=== PATIENT | male | born 1990 | race Two or more races ===

== ENCOUNTER 2017-03-18 08:32 | Emergency (ER) | payer SELFPAY ==
--- NOTE | ~2017-03-18 | ER ---
PATIENT'S NAME: JOSE L RAUSCH [facility] AGE: 26 Y [address] ROOM: [place] [address] LOCATION: ED ADMIT DATE: 03/18/2017 ER/Outpatient Report DISCHARGE DATE: 03/18/2017 FAMILY PHYSICIAN: PHYSICIAN, NO ATTENDING PHYSICIAN: Nico Kent CHIEF COMPLAINT: Nausea and vomiting. HISTORY OF PRESENT ILLNESS: The patient states that usually in the morning, he has some nausea and occasionally vomits, particularly when he is hungry and is unable to eat. Today, it has gotten worse and he states that he has not been able to even try to eat anything other than a pop tart today, which he was not able to keep down. He has not tried anything to make this better. The issue started around 6 o'clock when he woke up. He denies any other issues and denies any prior abdominal pain. His bowel movements have been regular for him up to this point. He had a normal bowel movement earlier this morning. PAST MEDICAL HISTORY: Documented on the record and reviewed by me. SOCIAL HISTORY: Documented on the record and reviewed by me. MEDICATIONS: Documented on the record and reviewed by me. ALLERGIES: DOCUMENTED ON THE RECORD AND REVIEWED BY ME. ROS: All systems are reviewed and negative except as noted in the HPI. PHYSICAL EXAMINATION: VITAL SIGNS: Blood pressure is 143/86, pulse is 72, respiratory rate is 28, temperature is 97.2, SpO2 is 97% on room air. Pain is rated at 3 to 5/10. GENERAL: An age-appropriate male retching, sitting upright on the side of the exam table, in no obvious pain or distress, age appropriate. NEURO: The patient is awake, he is interactive. He moves all extremities appropriately. No obvious asymmetry or abnormalities on exam. HEENT: Normocephalic and atraumatic. Eyes are PERRL. Oropharynx is clear and moist. NECK: Supple. Trachea is midline. CHEST: Heart is regular rate and rhythm with no murmurs. PATIENT'S NAME: JOSE L RAUSCH [facility] AGE: 26 Y [address] ROOM: [place] [address] LOCATION: ED ADMIT DATE: 03/18/2017 ER/Outpatient Report DISCHARGE DATE: 03/18/2017 FAMILY PHYSICIAN: PHYSICIAN, NO ATTENDING PHYSICIAN: Nico Kent LUNGS: Clear to auscultation bilaterally with no rhonchi, wheezes, or rales. ABDOMEN: Soft, nontender, except for very mild nonreproducible tenderness on first exam in the right upper quadrant. No reproducible tenderness on subsequent exams. No other masses or guarding appreciated. BACK: Nontender. No CVA tenderness. EXTREMITIES: Warm and well perfused. No obvious abnormalities. SKIN: Warm, dry, and intact. LABORATORY DATA AND X-RAYS: Three-way abdomen without any abnormalities per my read. Procalcitonin is below threshold. CMS is notable for elevated AST and ALT of 49 and 91 respectively. No renal compromise. Amylase and lipase are in appropriate range except with low lipase at 68. CBC without appreciable abnormalities. INR is 0.95. Lactate is 2.5. Right upper quadrant ultrasound notable for fatty liver, but no other hepatobiliary pathology. IMPRESSION: 1. Nausea and vomiting of undetermined etiology. 2. Elevated transaminases. EMERGENCY DEPARTMENT COURSE: The patient was seen and evaluated. He was given fluids, 2 rounds of Zofran, and a dose of Phenergan. He had marked improvement in his retching. He states he still has the abdominal discomfort, but is feeling okay. Right upper quadrant ultrasound was obtained and negative except as noted above. The patient remained otherwise hemodynamically stable and otherwise is doing okay. He was able to tolerate oral intake and was given a prescription for Phenergan and discharged home with instructions to follow up/establish care with a primary care provider as needed and return if worse. All questions were answered and the patient was discharged. MD KELLY HAILE/kate /[id number] d: 03/19/17 0000 t: 03/31/17 1722, OUTPATIENT REPORT
[2017-03-18 09:12] LABS: BASOPHIL % 0.4 %; EOSINOPHIL # 0.2 K/uL (0.0-0.5); EOSINOPHIL % 2.5 %; HEMATOCRIT 45.6 % (37.0-53.0); HEMOGLOBIN 16.1 g/dL (12.0-17.0); IMMATURE GRANULOCYTE % 0.1 %; LYMPHOCYTE % 24.4 %; MCH 32.1 pg (27.0-34.0); MCHC 35.3 gm/dL (32.0-36.5); MCV 90.8 fl (83.0-98.0); MONOCYTE # 0.8 K/uL (0.0-1.0); MONOCYTE % 9.4 %; NEUTROPHIL # (ANC) 5.3 K/uL (1.4-9.0); NEUTROPHIL % 63.2 %; NRBC % 0 /100WBC (0-0.00); PLATELET COUNT 336 K/uL (150-450); RBC 5.02 M/uL (4.00-6.00); RDW-CV 12.6 % (11.9-14.6); WBC 8.3 K/uL (4.0-11.0)
[2017-03-18 09:23] LABS: INR - (THERAPEUTIC) 0.95 (0.92-1.07); PTT 30 SECONDS (25-32)
[2017-03-18 09:34] LABS: ALBUMIN 4.2 gm/dL (3.5-5.0); ALK PHOS 100 IU/L (33-138); ALT 91 IU/L (12-78); ANION GAP 16.8 (10.0-19.0); AST 49 IU/L (10-40); BLOOD UREA NITROGEN 17 mg/dL (6-24); CALCIUM 9.5 mg/dL (8.5-10.5); CHLORIDE 108 mMol/L (96-110); CO2 20 mMol/L (22-32); ESTIMATED GFR (MDRD EQUATION) > 60; POTASSIUM 3.8 mMol/L (3.7-5.1); SODIUM 141 mMol/L (135-145); TOTAL BILIRUBIN 0.9 mg/dL (0.0-1.5); TOTAL PROTEIN 8.1 g/dL (6.0-8.4)
== END 2017-03-18 12:49 | disposition disaster alternative care site (69) ==
LOC: GMED 08:32
PROVIDERS: Emergency Medicine
DX: R74.0 Nonspecific elevation of levels of transaminase and lactic acid dehydrogenase [LDH] (principal); R11.2 Nausea with vomiting, unspecified; Z88.2 Allergy status to sulfonamides
CPT/HCPCS: J2405; J2550; J7030